=== PATIENT | female | born 1950 | race Two or more races ===

== ENCOUNTER 2019-10-02 13:59 | Outpatient (CLI) | payer MEDICARE, MEDICAID ==
[~2019-10-02] VITALS: Ht 154.9 cm; Wt 79.4 kg
[2019-10-02 15:20] VITALS: BP 136/63
--- NOTE | 2019-10-02 19:30 | Consultation ---
DATE OF CONSULTATION: 10/02/2019 CONSULTING PHYSICIAN: Juan J Alfredo M.D. CHIEF COMPLAINT: Referral for screening colonoscopy. HISTORY OF PRESENT ILLNESS: This 69-year-old female complained of abdominal pain, bloating, gas, and cigar shaped stools. No prior history of endoscopy. No colonoscopy. PAST MEDICAL HISTORY: None. PAST SURGICAL HISTORY: . MEDICATIONS: None. FAMILY HISTORY: Noncontributory. SOCIAL HISTORY: The patient denies any tobacco, alcohol, or drug abuse. ALLERGIES: No known allergies. REVIEW OF SYSTEMS: Positive for gas, bloating, and cigar shaped stool. PHYSICAL EXAMINATION: VITAL SIGNS: Temperature 97.8, blood pressure is 130/63, pulse 74, respirations 20, height is 5 feet 1 inch, weight is 175. HEENT: Normocephalic and atraumatic. Sclerae anicteric. NECK: Supple. No evidence of obvious lymphadenopathy. CARDIOVASCULAR: Regular rate and rhythm. Plus S1 and S2. No obvious murmur. LUNGS: Clear to auscultation bilaterally. ABDOMEN: Positive bowel sounds. Soft and nontender. No rebound. No guarding. No peritoneal sign. EXTREMITIES: No cyanosis. No clubbing. No edema ASSESSMENT AND PLAN: This is a 69-year-old female with gas, bloating, abdominal distention, questionable SIBO. Also complained of chronic reflux disease. Given the patient had no prior colonoscopy and colonoscopy, endoscopy for evaluation of GERD and colonoscopy for screening. The patient is to come back in the office after those procedures are done. The patient might benefit from Xifaxan endoscopy and colonoscopy are nondiagnostic. Juan J Alfredo M.D. DR: YOLANDE JOB#: [id number] CC:
== END 2019-10-02 15:54 | disposition home or self-care (01) ==
LOC: PAN 13:59
DX: R10.9 Unspecified abdominal pain (principal); R14.0 Abdominal distension (gaseous); K21.9 Gastro-esophageal reflux disease without esophagitis

== ENCOUNTER 2019-10-28 08:26 | Day surgery (SDC) | payer MEDICARE, MEDICAID ==
[2019-10-28] VITALS (9 sets, daily range): BP systolic 110–141; BP diastolic 60–78
[~2019-10-28] VITALS: Ht 154.9 cm; Wt 79.4 kg
[~2019-10-28 08:26] MED LIST: LR 1000ml 1,000 ML IVLG SCH
[2019-10-28] MEDS ORDERED: fentaNYL 100 mcg/2 mL IV ONE (08:27)
[2019-10-28] MEDS ORDERED: Midazolam 2mg/2ml Inj ONE (08:27)
[2019-10-28] MEDS ORDERED: Propofol 200mg/20ml IV ONE (09:00)
[2019-10-28] MEDS ORDERED: LR 1000ml ONE (09:00)
--- NOTE | 2019-10-28 09:05 | Pre-Procedure Note/Attestation ---
Pre-Procedure Note/Attestation Complete Prior to Procedure Planned Procedure: not applicable Procedure Narrative: colonoscopy Indications for Procedure Pre-Operative Diagnosis: screening Attestation I attest that I discussed the nature of the procedure; its benefits; risks and complications; and alternatives (and the risks and benefits of such alternatives ), prior to the procedure, with the patient (or the patient's legal payroll representative). I attest that, if there was a reasonable possibility of needing a blood transfusion, the patient (or the patient's legal payroll representative) was given the [facility] Services standardized written summary, pursuant to the Rodri [place] Blood Safety Act ([place] Health and Safety Code # 1645, as amended). I attest that I re-evaluated the patient just prior to the surgery and that there has been no change in the patient's H&P, except as documented below: Juan J Alfredo MD Oct 28, 2019 09:05
--- NOTE | 2019-10-28 09:07 | Short Stay Surgery H&P ---
History of Present Illness History of Present Illness Chief Complaint see recent office note HPI Iliana Trejo is a 69 year old female who was admitted on for Colonoscopy Screening Patient History Allergies: Coded Allergies: No Known Allergies (Unverified , 10/02/19) Medication History No Active Prescriptions or Reported Meds Physical Exam Vital Signs Last Vital Signs Date Time Temp Pulse Resp B/P (MAP) Pulse Ox O2 Delivery O2 Flow Rate FiO2 10/28/19 08:59 Room Air 10/28/19 08:50 96.7 82 18 120/78 82 Plan Attestation Are the patient's medical conditions optimized for surgery? Juan J Alfredo MD Oct 28, 2019 09:07
--- NOTE | 2019-10-28 09:07 | Pre-Procedure Note/Attestation ---
Pre-Procedure Note/Attestation Complete Prior to Procedure Planned Procedure: not applicable Procedure Narrative: egd Indications for Procedure Pre-Operative Diagnosis: GERD Attestation I attest that I discussed the nature of the procedure; its benefits; risks and complications; and alternatives (and the risks and benefits of such alternatives ), prior to the procedure, with the patient (or the patient's legal customer field representative). I attest that, if there was a reasonable possibility of needing a blood transfusion, the patient (or the patient's legal customer field representative) was given the [facility] Services standardized written summary, pursuant to the [place] Blood Safety Act ([place] Health and Safety Code # 1645, as amended). I attest that I re-evaluated the patient just prior to the surgery and that there has been no change in the patient's H&P, except as documented below: Juan J Alfredo MD Oct 28, 2019 09:07
[2019-10-28] MEDS ORDERED: LR 1000ml 1,000 ML IVLG SCH (09:26)
--- NOTE | 2019-10-28 09:26 | Anethesia Preoperative Eval ---
Anesthesia Pre-op PMH/ROS General Date of Evaluation: Oct 28, 2019 Time of Evaluation: 09:02 Anesthesiologist: Shaheed ASA Score: ASA 2 Mallampati Score Class I : Soft palate, uvula, fauces, pillars visible Class II: Soft palate, uvula, fauces visible Class III: Soft palate, base of uvula visible Class IV: Only hard plate visible Mallampati Classification: Class II Surgeon: Juni Diagnosis: Abdominal pain Surgical Procedure: EGD Colonoscopy Anesthesia History: none Family History: no anesthesia problems Allergies: Coded Allergies: No Known Allergies (Unverified , 10/02/19) Medications: see eMAR Patient NPO?: Yes Past Medical History Cardiovascular: Denies: HTN, CAD, [place], valve dz, arrhythmia, other Pulmonary: Denies: asthma, COPD, PARAM, other Gastrointestinal/Genitourinary: Reports: GERD; Denies: CRI, ESRD, other Neurologic/Psychiatric: Denies: dementia, CVA, depression/anxiety, TIA, other Endocrine: Denies: DM, hypothyroidism, steroids, other HEENT: Denies: cataract (L), cataract (R), glaucoma, PALA (L), PALA (R), other Hematology/Immune: Denies: anemia, DVT, bleeding disorder, other Musculoskeletal/Integumentary: Reports: OA; Denies: RA, DJD, DDD, edema, other Other: other - overweight PMH Narrative: as above PSxH Narrative: x2 Anesthesia Pre-op Phys. Exam Physician Exam Last Vital Signs Date Time Temp Pulse Resp B/P (MAP) Pulse Ox O2 Delivery O2 Flow Rate FiO2 10/28/19 08:59 Room Air 10/28/19 08:50 96.7 82 18 120/78 82 Airway Exam Mallampati Score: Class II MO: full Neck: flexible ROM: full Teeth: missing Dentures: upper, lower Anesthesia Pre-op A/P Labs see chart Risk Assessment & Plan Assessment: ASA 2 Plan: Pop Juarez MD Oct 28, 2019 09:26
[2019-10-28] MEDS ORDERED: fentaNYL 100 mcg/2 mL IV PRN (09:30)
--- NOTE | 2019-10-28 09:36 | Endoscopy Procedure Note ---
Endoscopy Procedure Note General Indication for Procedure: gerd, Screening Procedures Performed: EGD, colonoscopy Operative Findings/Diagnosis: gastrtis, 3 polyps Specimen: yes Pt Tolerated Procedure Well: Yes Estimated Blood Loss: none Anesthesia Anesthesiologist: josie Anesthesia: MAC Inserted Devices Implant(s) used?: No Quality Quality of Bowel Preparation: Good Did scope reach the cecum?: Yes Was there any complications?: No GI Core Measures 50 yrs or older w/o bx or poly: No 10yrs. F/U recommended: Yes If not recommended, why?: Above average risk 18 years or older w/prev. colo: Yes <3yrs. since last colonoscopy: No Juan J Alfredo MD Oct 28, 2019 09:36
--- NOTE | 2019-10-28 09:44 | Immediate Post-Op Evaluation ---
Immediate Post-Op Evalulation Immediate Post-Op Evalulation Procedure: EGD Colonoscopy Date of Evaluation: Oct 28, 2019 Time of Evaluation: 09:43 IV Fluids: 600 Blood Products: none Estimated Blood Loss: none Urinary Output: none Blood Pressure Systolic: 116 Blood Pressure Diastolic: 64 Pulse Rate: 62 Respiratory Rate: 20 O2 Sat by Pulse Oximetry: 98 Temperature (Fahrenheit): 97.6 Pain Score (1-10): 1 Nausea: No Vomiting: No Complications NONE Patient Status: awake, patent, none Hydration Status: adequate Pop Hummel MD Oct 28, 2019 09:44
--- NOTE | 2019-10-28 10:49 | 48 Hour Post Anesthesia Eval ---
Post Anesthesia Evaluation Procedure: EGD Colonoscopy Date of Evaluation: Oct 28, 2019 Time of Evaluation: 10:48 Blood Pressure Systolic: 136 0: 77 Pulse Rate: 68 Respiratory Rate: 20 Temperature (Fahrenheit): 97.6 O2 Sat by Pulse Oximetry: 98 Airway: patent Nausea: No Vomiting: No Pain Intensity: 1 Hydration Status: adequate Cardiopulmonary Status: stable Mental Status/LOC: patient returned to baseline Follow-up Care/Observations: n/a Post-Anesthesia Complications: none Follow-up care needed: ready to discharge Pop Hummel MD Oct 28, 2019 10:49
--- NOTE | 2019-10-28 15:15 | Procedure Note ---
DATE OF PROCEDURE: 10/28/2019 SURGEON: Juan J Alfredo M.D. PROCEDURE: Upper endoscopy with biopsy and colonoscopy with biopsy. ANESTHESIA: Per Pop Hummel M.D. INSTRUMENT: Olympus adult flexible upper endoscope and colonoscope. INDICATION: 1. Screening colonoscopy evaluation. 2. Chronic GERD. REASON FOR PROCEDURE: The procedure, risks, benefits, and possible consequences, including hemorrhage, aspiration, perforation and infection, and alternative treatments, were explained to the patient/legal guardian by Dr. Juan J Alfredo and the patient/legal guardian understood and accepted these risks. DESCRIPTION OF PROCEDURE: After informed consent was obtained and the patient was adequately sedated, Olympus upper endoscope was advanced from mouth into the second portion of the duodenum and retroflexion was performed in the stomach. The patient has diffuse gastritis. Random biopsy from antrum and body was obtained to rule out H. pylori infection. Otherwise, the rest of the upper endoscopic examination was grossly within normal limits. At this time, the upper endoscope was retrieved and the patient was turned over for colonoscopy. First, rectal exam was performed, which was positive for internal hemorrhoids. Then, the scope was advanced from rectum into the cecum documented by appendiceal orifice, ileocecal valve, and right upper quadrant palpation. Quality of prep was very good. The patient had three diminutive polyp in the rectosigmoid area, all removed with the cold biopsy forceps technique. Otherwise, the rest of the examination grossly within normal limits. Retroflexion of rectum showed evidence of internal hemorrhoids. SUMMARY OF FINDINGS: 1. Gastritis, status post biopsy. 2. Three colonic polyps removed, see above for details. 3. Internal hemorrhoids. RECOMMENDATIONS: 1. Follow biopsy results and treat accordingly. 2. We will recommend repeat colonoscopy in 5 years. Juan J Alfredo M.D. DR: Alyssa JOB#: [id number] CC:
== END 2019-10-28 11:00 | disposition home or self-care (01) ==
LOC: GAS 08:26
DX: Z12.11 Encounter for screening for malignant neoplasm of colon (principal); K21.9 Gastro-esophageal reflux disease without esophagitis; K63.5 Polyp of colon; K64.8 Other hemorrhoids; K29.70 Gastritis, unspecified, without bleeding; M19.90 Unspecified osteoarthritis, unspecified site; E66.3 Overweight; Z68.33 Body mass index [BMI] 33.0-33.9, adult
CPT/HCPCS: 43239; 45380; J2250; J2704; J3010; J7120; 94003; 94150